=== PATIENT | male | born 1960 | race Two or more races ===

== ENCOUNTER 2023-06-28 07:43 | Inpatient (IN) | payer OTHER ==
[~2023-06-28] VITALS: Ht 180.3 cm; Wt 99.8 kg
[2023-06-28] MEDS ORDERED: LISINO PO (08:35)
[2023-06-28] MEDS ORDERED: NORVASC5 MG PO (08:36)
[2023-06-28] MEDS ORDERED: GABAPENT PO (08:36)
[2023-07-04] MEDS ORDERED: GABAPENTIN800 M1 PO (14:48)
[2023-07-04] MEDS ORDERED: ZESTRIL2.5 MG PO (14:49)
[2023-07-05] MEDS ORDERED: ELIQUIS2.5 MG PO (07:56)
[2023-07-05] MEDS ORDERED: DUI500 PO (07:56)
[2023-07-05] MEDS ORDERED: PERCOCET 5-3251 EACH PO (07:56)
== END 2023-07-06 18:44 | DRG 470 ==
LOC: O/R 07-04 06:34 → SURG 07-04 07:45
PROVIDERS: ADMIT Orthopaedic Surgery; ATTEND Orthopaedic Surgery
PROC: 0MBM0ZZ Excision of Left Hip Bursa and Ligament, Open Approach (ICD-10-PCS; 2023-07-04)
PROC: 0SRB0J9 Replacement of Left Hip Joint with Synthetic Substitute, Cemented, Open Approach (ICD-10-PCS; principal; 2023-07-04 13:00)
DX: M16.12 Unilateral primary osteoarthritis, left hip (principal); M25.652 Stiffness of left hip, not elsewhere classified; M70.62 Trochanteric bursitis, left hip; I10 Essential (primary) hypertension; Z96.642 Presence of left artificial hip joint